=== PATIENT | male | born 1955 | race Caucasian/White ===

== ENCOUNTER → 2024-05-31 | Outpatient (CLI) | payer MEDICARE, SELFPAY ==
--- NOTE | 2024-05-31 | XR_ITS ---
Examination: Shoulder,left, 3 views Technique: Shoulder AP internal rotation, AP external rotation, Y view shoulder, 3 views Exam date and time :May 31, 2024 1330 hours INDICATIONS: Patient fell 20 years ago with injury to the shoulder, persistent shoulder pain. FINDINGS: Significant osteopenia No fracture or shoulder dislocation Moderate narrowing glenohumeral joint IMPRESSION: Moderate osteoarthritis glenohumeral joint
== END | disposition home or self-care (01) ==
PROVIDERS: PCP Nurse Practitioner Family; Referring Provider Nurse Practitioner Family; Visit Provider Nurse Practitioner Family
DX: M19.012 Primary osteoarthritis, left shoulder (principal); S49.92XA Unspecified injury of left shoulder and upper arm, initial encounter; W19.XXXA Unspecified fall, initial encounter
CPT/HCPCS: 73030

== ENCOUNTER → 2024-06-03 | Outpatient (CLI) | payer MEDICARE, SELFPAY ==
[2024-06-03 09:52] LABS: Hemoglobin A1C 5.6 % Hgb (4.8-6.0)
[2024-06-03 09:53] LABS: Glucose Estimated Average 114 mg/dL (80-131)
[2024-06-03 09:55] LABS: Cardiac Risk Estimate 5.3 RATIO (4.0-6.7); Cholesterol 245 mg/dL (132-200); HDL Cholesterol 46 mg/dL (40-60); LDL Cholesterol,Calculated 161 mg/dL (0-130); Triglycerides 189 mg/dL (30-150)
== END | disposition home or self-care (01) ==
LOC: COPL 08:42
PROVIDERS: PCP Nurse Practitioner Family; Referring Provider Nurse Practitioner Family; Visit Provider Nurse Practitioner Family
DX: E78.5 Hyperlipidemia, unspecified (principal); R73.03 Prediabetes
CPT/HCPCS: 36415; 80061; 83036

== ENCOUNTER → 2024-08-12 | Outpatient (BNVA) | payer MEDICARE, SELFPAY | END | disposition home or self-care (01) | PROVIDERS: PCP Nurse Practitioner Family; Referring Provider Nurse Practitioner Family; Visit Provider Urology | DX: N40.1 Benign prostatic hyperplasia with lower urinary tract symptoms (principal); N13.8 Other obstructive and reflux uropathy; I10 Essential (primary) hypertension; R97.20 Elevated prostate specific antigen [PSA]; E66.9 Obesity, unspecified; Z68.30 Body mass index [BMI] 30.0-30.9, adult; F17.210 Nicotine dependence, cigarettes, uncomplicated | CPT/HCPCS: 81003; 99203; G0463 ==